=== PATIENT | male | born 1985 | race Two or more races ===

== ENCOUNTER 2018-07-19 14:48 | Emergency (ER) | payer SELFPAY ==
[~2018-07-19] VITALS: Ht 172.7 cm; Wt 86.2 kg
[2018-07-19 14:53] VITALS: BP 148/80
[2018-07-19] MEDS ORDERED: IBUPROFEN 600 MG TABLET PO ONE ×3 (15:57→16:00)
== END 2018-07-19 16:43 | disposition home or self-care (01) ==
LOC: ER 14:52
DX: M54.6 Pain in thoracic spine (principal)
CPT/HCPCS: 71045; 99283; A4606; Z7610